=== PATIENT | male | born 1965 | race Caucasian/White ===

== ENCOUNTER → 2017-02-12 | Outpatient (CLI) | payer OTHER ==
--- NOTE | 2017-02-12 12:05 | XR ---
EXAMINATION TYPE: XR foot complete LT DATE OF EXAM: 02/12/2017 COMPARISON: NONE HISTORY: Right foot pain, left heel pain TECHNIQUE: 3 views left foot FINDINGS: No acute fractures are evident. The soft tissues are normal. Small plantar and Achilles ten don calcaneal heel spurs are present. IMPRESSION: 1. Calcaneal heel spurs. 2. No acute osseous abnormality.
== END | disposition home or self-care (01) ==
LOC: RADXRMAIN 11:07
PROVIDERS: ATTEND Physician Assistant
DX: M77.31 Calcaneal spur, right foot (principal)

== ENCOUNTER → 2017-08-30 | Outpatient (CLI) | payer OTHER ==
[2017-08-30 12:17] LABS: ALT 35 U/L (21-72); AST 19 U/L (17-59); Albumin 4.3 g/dL (3.5-5.0); Alkaline Phosphatase 81 U/L (38-126); Anion Gap 12 mmol/L; Blood Urea Nitrogen 16 mg/dL (9-20); Calcium 9.3 mg/dL (8.4-10.2); Carbon Dioxide 27 mmol/L (22-30); Chloride 103 mmol/L (98-107); Cholesterol 241 mg/dL (<200); Glucose 103 mg/dL (74-99); HDL Cholesterol 48 mg/dL (40-60); LDL Cholesterol,Calculated 169 mg/dL (0-99); Potassium 4.7 mmol/L (3.5-5.1); Sodium 142 mmol/L (137-145); Total Bilirubin 0.5 mg/dL (0.2-1.3); Total Protein 7.6 g/dL (6.3-8.2); Triglycerides 118 mg/dL (<150)
== END | disposition home or self-care (01) ==
LOC: LABWHC1 11:42
PROVIDERS: ATTEND Internal Medicine Interventional Cardiology
DX: E78.2 Mixed hyperlipidemia (principal)
CPT/HCPCS: 36415; 80053; 80061

== ENCOUNTER → 2018-02-22 | Outpatient (CLI) | payer OTHER ==
[2018-02-22 13:38] LABS: ALT 41 U/L (21-72); AST 32 U/L (17-59); Anion Gap 9 mmol/L; Blood Urea Nitrogen 14 mg/dL (9-20); Calcium 9.5 mg/dL (8.4-10.2); Carbon Dioxide 25 mmol/L (22-30); Chloride 105 mmol/L (98-107); Cholesterol 210 mg/dL (<200); Glucose 97 mg/dL (74-99); HDL Cholesterol 47 mg/dL (40-60); LDL Cholesterol,Calculated 143 mg/dL (0-99); Potassium 4.5 mmol/L (3.5-5.1); Sodium 139 mmol/L (137-145); Triglycerides 101 mg/dL (<150)
[2018-02-22 13:44] LABS: Basophils % (A) 1 %; Eosinophils # (A) 0.1 k/uL (0-0.7); Eosinophils % (A) 1 %; HCT 49.4 % (39.0-53.0); HGB 16.6 gm/dL (13.0-17.5); Lymphocytes # (A) 2.3 k/uL (1.0-4.8); Lymphocytes % (A) 26 %; MCH 33.1 pg (25.0-35.0); MCHC 33.5 g/dL (31.0-37.0); MCV 98.7 fL (80.0-100.0); Mean Platelet Volume 6.7; Monocytes # (A) 0.5 k/uL (0-1.0); Monocytes % (A) 5 %; Neutrophils # (A) 5.9 k/uL (1.3-7.7); Neutrophils % (A) 65 %; Platelet Count 255 k/uL (150-450); RBC 5.01 m/uL (4.30-5.90); RDW 12.7 % (11.5-15.5)
[2018-02-22 13:54] LABS: T4, Free (Free Thyroxine) 0.95 ng/dL (0.78-2.19)
[2018-02-22 14:08] LABS: Prostate Specific Antigen 1.02 ng/mL (0.00-4.00)
== END | disposition home or self-care (01) ==
LOC: LABWHC1 12:54
PROVIDERS: ATTEND Internal Medicine Interventional Cardiology
DX: I10 Essential (primary) hypertension (principal); E78.2 Mixed hyperlipidemia; Z12.5 Encounter for screening for malignant neoplasm of prostate
CPT/HCPCS: 36415; 80048; 80061; 84153; 84439; 84443; 84450; 84460; 85025

== ENCOUNTER → 2018-10-21 | Outpatient (CLI) | payer OTHER ==
[2018-10-21 18:59] LABS: Albumin 4.7 g/dL (3.80-4.90); Albumin/Globulin Ratio 2.04 (1.60-3.17); Anion Gap 9.2 mmol/L (4.00-12.00); Calcium 9.4 mg/dL (8.7-10.3); Carbon Dioxide 24.8 mmol/L (21.6-31.8); Globulin 2.3 g/dL (1.6-3.3); LDL Cholesterol,Calculated 145.6 mg/dL (0.0-131.0); Potassium 4.1 mmol/L (3.5-5.5); Total Bilirubin 0.7 mg/dL (0.3-1.2); VLDL Calculation 23.4 mg/dL (5.00-40.00)
== END ==
LOC: LABWHC1 12:55
PROVIDERS: ATTEND Internal Medicine Interventional Cardiology
DX: E78.2 Mixed hyperlipidemia (principal)
CPT/HCPCS: 36415; 80053; 80061

== ENCOUNTER → 2019-03-10 | Outpatient (CLI) | payer OTHER ==
[2019-03-10 18:26] LABS: African American GFR (CKD) 99.8 (60.0-200.0); Albumin 4.6 g/dL (3.80-4.90); Albumin/Globulin Ratio 2.09 (1.60-3.17); Anion Gap 7.7 mmol/L (4.00-12.00); Calcium 9.2 mg/dL (8.7-10.3); Carbon Dioxide 27.3 mmol/L (21.6-31.8); Chol/HDL Ratio 4.44; Globulin 2.2 g/dL (1.6-3.3); LDL Cholesterol,Calculated 122.8 mg/dL (0.0-131.0); Potassium 4.1 mmol/L (3.5-5.5); Total Bilirubin 0.5 mg/dL (0.2-1.2); Total Protein 6.8 g/dL (6.2-8.2); VLDL Calculation 18.2 mg/dL (5.00-40.00)
== END | disposition home or self-care (01) ==
LOC: LABWHC1 12:42
PROVIDERS: ATTEND Internal Medicine Interventional Cardiology
DX: E78.2 Mixed hyperlipidemia (principal)
CPT/HCPCS: 36415; 80053; 80061

== ENCOUNTER → 2019-04-28 | Outpatient (CLI) | payer OTHER ==
[2019-04-28 17:08] LABS: Chol/HDL Ratio 4.07; LDL Cholesterol,Calculated 110.4 mg/dL (0.0-131.0); VLDL Calculation 18.6 mg/dL (5.00-40.00)
== END | disposition home or self-care (01) ==
LOC: LABWHC1 11:39
PROVIDERS: ATTEND Nurse Practitioner Adult Health
DX: E78.2 Mixed hyperlipidemia (principal)
CPT/HCPCS: 36415; 80061; 82550; 84450; 84460

== ENCOUNTER → 2020-01-30 | Outpatient (CLI) | payer OTHER ==
[2020-01-30 19:41] LABS: Chol/HDL Ratio 5.8; LDL Cholesterol,Calculated 168.6 mg/dL (0.0-131.0); VLDL Calculation 28.4 mg/dL (5.00-40.00)
== END | disposition home or self-care (01) ==
LOC: LABWHC1 12:27
PROVIDERS: ATTEND Nurse Practitioner Adult Health
DX: E78.2 Mixed hyperlipidemia (principal)
CPT/HCPCS: 36415; 80061

== ENCOUNTER 2020-06-12 10:25 | Day surgery (SDC) | payer OTHER ==
[2020-05-21 15:28] VITALS: BMI 41.8
--- NOTE | 2020-06-12 09:47 | P.GSHP ---
History of Present Illness H&P Date: 06/12/20 CHIEF COMPLAINT: Colon screen HISTORY OF PRESENT ILLNESS: The patient is a 54-year-old male who presents for colon screen. Lower endoscopy was offered for further evaluation and management. PAST MEDICAL HISTORY: Please see list. PAST SURGICAL HISTORY: Please see list. MEDICATIONS: Please see list. ALLERGIES: Please see list. SOCIAL HISTORY: No illicit drug use FAMILY HISTORY: No reports of Crohn disease or ulcerative colitis. REVIEW OF ORGAN SYSTEMS: CONSTITUTIONAL: No reports of fevers or chills. PHYSICAL EXAM: VITAL SIGNS: Stable GENERAL: Well-developed pleasant in no acute distress. HEENT: No scleral icterus. Extraocular movements grossly intact. Moist buccal mucosa. NECK: Supple without lymphadenopathy. CHEST: Unlabored respirations. Equal bilateral excursions. CARDIOVASCULAR: Regular rate and rhythm. Distal 2+ pulses. ABDOMEN: Soft, nontender, nondistended. MUSCULOSKELETAL: No clubbing, cyanosis, or edema. ASSESSMENT: 1. Colon screen. PLAN: 1. Recommend proceeding with a lower endoscopy Past Medical History Past Medical History: Coronary Artery Disease (CAD), GERD/Reflux, Hyperlipidemia, Hypertension, Sleep Apnea/CPAP/BIPAP Additional Past Medical History / Comment(s): bronchitis yearly until young adulthood, no cpap used, History of Any Multi-Drug Resistant Organisms: None Reported Past Surgical History: Heart Catheterization With Stent Additional Past Surgical History / Comment(s): two cardiac stents Past Anesthesia/Blood Transfusion Reactions: No Reported Reaction Additional Past Anesthesia/Blood Transfusion Reaction / Comment(s): Pt has never had general anesthesia. He has never recieved blood. Date of Last Stent Placement:: 2014 Smoking Status: Current every day smoker - Past Family History Father Additional Family Medical History / Comment(s): Father at age 42 yrs of unknown causes. He was coughing blood. Pt believes he may have had cancer. Mother Family Medical History: Cancer Additional Family Medical History / Comment(s): Mother of metastatic breast cancer at age 54yrs. Medications and Allergies Home Medications Medication Instructions Recorded Confirmed Type Aspirin [Adult Low Dose Aspirin EC] 81 mg PO DAILY 05/21/20 06/10/20 History Atorvastatin [Lipitor] 10 mg PO SUTH 05/21/20 05/21/20 History carvediloL [Coreg] 12.5 mg PO BID 05/21/20 05/21/20 History amLODIPine [Norvasc] 5 mg PO HS 06/10/20 06/10/20 History Allergies Allergy/AdvReac Type Severity Reaction Status Date / Time Iodine and Iodide Containing Allergy Severe Anaphylaxis Verified 05/21/20 15:20 Produc shellfish derived [Shellfish] Allergy Anaphylaxis Verified 05/21/20 15:20 codiene AdvReac Nausea Uncoded 05/21/20 15:20
[~2020-06-12 10:25] MED LIST: LACTATED RINGERS 1,000 ML IV SCH; LIDOCAINE 1% (10MG/ML) FOR IV START INTRADERMA PRN
[2020-06-12 11:09] VITALS: TEMP 97.2
[2020-06-12] MEDS ORDERED: PROPOFOL 10 MG/ML 20 ML VIAL IV ONE (11:51)
--- NOTE | 2020-06-12 12:24 | P.PCN ---
Date of Procedure: 06/12/20 Description of Procedure: PREOPERATIVE DIAGNOSIS: Family history colon cancer Colonoscopy screening, initial POSTOPERATIVE DIAGNOSIS: Family history colon cancer Colonoscopy screening, initial Tubular adenoma ascending colon Tubular adenoma transverse colon Tubular adenoma sigmoid colon Severe obstructive sleep apnea, untreated Sigmoid diverticulosis OPERATION: Colonoscopy to the ileocecal valve, cecum Colonoscopy with hot snare polypectomy SURGEON: Ayala Rosario MD. ANESTHESIA: MAC. INDICATIONS: The patient is an 54-year-old male who presents family history of malignant colon cancer. He presents for his first colonoscopy screening. Benefits and risks were described and informed consent was obtained. DESCRIPTION OF PROCEDURE: The patient had undergone Suprep. He had been brought into the operating room and laid in the left lateral decubitus position. After adequate intravenous sed ation, the rectum was examined with 2% lidocaine jelly. The prostate was enlarged. No external hemorrhoids were encountered. The rectal tone was within normal limits. No lesions were palpated in the rectal vault. An Olympus colonoscope was advanced to the cecum and ileocecal valve. The prep was good. Sigmoid diverticulosis was encountered. Multiple colonic polyps were found and snare polypectomy. During the procedure, patient acutely desatted unable to tolerate sedation. Additional polyps unable to obtain from transverse colon, sigmoid colon due to intolerance of sedation. No evidence of focal colitis was found. Retroflexion of the scope demonstrated grade 2 internal hemorrhoids without active bleeding or inflammation. The colon was desufflated. The patient had tolerated the procedure well. Withdrawal time was over 6 minutes. FINDINGS: Aronchick preparation quality scale 2 (1-5) Internal hemorrhoids, grade 2 with recent inflammation and bleeding No external hemorrhoids. No arteriovenous malformations. Sigmoid diverticulosis Multiple polyps identified along the transverse colon 3, sigmoid colon 1, unobtainable to obtain as patient is unable to tolerate sedation Removal of 1 polyp: - Snare polypectomy ascending colon, 5 mm tubulovillous adenoma polyp. No focal colitis. RECOMMENDATIONS: 1. He has multiple high-risk colon polyps, repeat colonoscopy 1 year, 2021 2. Per discussion with anesthesia, general endotracheal intubation for colonoscopy with polypectomy 3. Recommend urgent assessment for severe untreated obstructive sleep apnea Plan - Discharge Summary Discharge Rx Participant: No New Discharge Prescriptions: Continue Atorvastatin [Lipitor] 10 mg PO SUTH carvediloL [Coreg*] 12.5 mg PO BID Aspirin [Adult Low Dose Aspirin EC] 81 mg PO DAILY amLODIPine [Norvasc] 5 mg PO HS Discharge Medication List Aspirin [Adult Low Dose Aspirin EC] 81 mg PO DAILY 05/21/20 [History] Atorvastatin [Lipitor] 10 mg PO SUTH 05/21/20 [History] carvediloL [Coreg*] 12.5 mg PO BID 05/21/20 [History] amLODIPine [Norvasc] 5 mg PO HS 06/10/20 [History] Follow up Appointment(s)/Referral(s): Ayala Rosario MD [STAFF PHYSICIAN] - 06/18/20 Patient Instructions/Handouts: Colorectal Polyps (DC), Sleep Apnea (DC) Activity/Diet/Wound Care/Special Instructions: Repeat colonoscopy 1 year, 2021 under general anesthetic. Will need immediate referral for sleep apnea treatment Discharge Disposition: HOME SELF-CARE
[2020-06-12 12:42] VITALS: BP 126/71; PULSE 70; RESP 16
== END 2020-06-12 13:04 | disposition home or self-care (01) ==
LOC: ORWHC2ENDO 10:25
PROVIDERS: ATTEND Surgery Plastic and Reconstructive Surgery
DX: Z12.11 Encounter for screening for malignant neoplasm of colon (principal); D12.2 Benign neoplasm of ascending colon; D12.3 Benign neoplasm of transverse colon; D12.5 Benign neoplasm of sigmoid colon; K57.30 Diverticulosis of large intestine without perforation or abscess without bleeding; K64.1 Second degree hemorrhoids; G47.33 Obstructive sleep apnea (adult) (pediatric); I25.10 Atherosclerotic heart disease of native coronary artery without angina pectoris; I10 Essential (primary) hypertension; E78.5 Hyperlipidemia, unspecified; Z95.5 Presence of coronary angioplasty implant and graft; K21.9 Gastro-esophageal reflux disease without esophagitis; Z80.0 Family history of malignant neoplasm of digestive organs; Z79.82 Long term (current) use of aspirin; Z79.02 Long term (current) use of antithrombotics/antiplatelets; Z79.899 Other long term (current) drug therapy; Z91.041 Radiographic dye allergy status; Z88.5 Allergy status to narcotic agent; Z88.8 Allergy status to other drugs, medicaments and biological substances; Z91.013 Allergy to seafood; Z80.3 Family history of malignant neoplasm of breast
CPT/HCPCS: 88305; 45385; J2704

== ENCOUNTER → 2020-06-18 | Outpatient (CLI) | payer OTHER ==
[2020-06-18 21:27] LABS: Chol/HDL Ratio 4.77
== END | disposition home or self-care (01) ==
LOC: LABWHC1 11:36
PROVIDERS: ATTEND Nurse Practitioner Adult Health
DX: E78.2 Mixed hyperlipidemia (principal)
CPT/HCPCS: 36415; 80061; 84450; 84460

== ENCOUNTER → 2020-11-06 | Outpatient (CLI) | payer OTHER ==
--- NOTE | 2020-11-06 17:46 | CONS ---
CONSULTATION HISTORY: A 55-year-old gentleman has been evaluated in [facility] for possible obstructive sleep apnea-hypopnea syndrome. EVALUATION: Patient's usual sleep schedule from 11 p.m. to 5 a.m. basically 7 days a week. No problems with falling asleep, although he has TV set in bedroom. He usually sleeps on the side position with extremely loud snoring and witnessed episodes of stopped breathing during sleep by his . He wakes up from sleep up to 5 times with nocturia. No history of hypnagogic hallucinations, sleep paralysis or cataplexy. During the day, patient may take one nap at 3 p.m. [place] Sleepiness Scale is 4. PAST MEDICAL HISTORY: Positive for hypertension, coronary artery disease, heart attack, hyperlipidemia. PAST SURGICAL HISTORY: Stent insertions to coronary arteries. MEDICATIONS: Carvedilol 12.5 mg twice a day, amlodipine 10 mg once a day, atorvastatin 10 mg 3 times a week, baby aspirin 81 mg once a day, naproxen 220 mg once a day, turmeric. ALLERGIES: Iodine. SOCIAL HISTORY: Alcohol consumption occasional. History of smoking up to 1-1/2 packs a day for 25 years. REVIEW OF SYSTEMS: Loud snoring, witnessed episodes of stopped breathing, multiple awakenings from sleep. PHYSICAL EXAM: A pleasant gentleman without distress. BP 168/91, HR 62, RR 18, height 5 feet 8-1/2 inches, weight 297.6 pounds, body mass index 44.5, temperature 97.5, oxygen saturation at room air 97%. Oropharynx extremely low position of soft palate, Mallampati 4. Neck is wide, 19-1/2 inches in circumference. Abdomen obese. IMPRESSION: 1. Loud snoring, witnessed episodes of stopped breathing during sleep, extremely low position of soft palate, Mallampati 4, wide neck 19.5 Inches in circumference, obstructive sleep apnea-hypopnea syndrome. 2. Obesity, BMI 44.5. 3. Hypertension. 4. Coronary artery disease, status post NM and stent insertions. 5. Hyperlipidemia. PLAN: 1. Polysomnography for evaluation of patient's breathing during sleep. 2. CPAP/BiPAP titration if sleep study confirms obstructive sleep apnea-hypopnea syndrome. 3. Preferable position during sleep on the side. 4. No driving if patient feels any sleepiness. 5. I will see patient for follow up visit to explain results of testing and following plan. Rony Li MD, PhD, FAASM Diplomat of [place] [employer] [place] [employer] [facility] [facility] [place] MMODMarcelo / LIGIA: [id number] /
== END ==
LOC: SLEEP 13:05
PROVIDERS: ATTEND Internal Medicine
DX: G47.33 Obstructive sleep apnea (adult) (pediatric) (principal); E66.9 Obesity, unspecified; E78.5 Hyperlipidemia, unspecified; I10 Essential (primary) hypertension; I25.10 Atherosclerotic heart disease of native coronary artery without angina pectoris; I25.2 Old myocardial infarction; Z68.41 Body mass index [BMI] 40.0-44.9, adult; Z79.899 Other long term (current) drug therapy; Z95.5 Presence of coronary angioplasty implant and graft; Z79.82 Long term (current) use of aspirin; Z87.891 Personal history of nicotine dependence; Z91.041 Radiographic dye allergy status; Z91.013 Allergy to seafood; Z88.5 Allergy status to narcotic agent
CPT/HCPCS: 99202

== ENCOUNTER → 2020-12-09 | Outpatient (CLI) | payer OTHER ==
[2020-12-09 19:40] LABS: Albumin 4.6 g/dL (3.80-4.90); Albumin/Globulin Ratio 1.7 (1.60-3.17); Anion Gap 7.2 mmol/L (4.00-12.00); BUN/Creat Ratio 15.71 Ratio (12.00-20.00); Calcium 8.9 mg/dL (8.7-10.3); Carbon Dioxide 24.8 mmol/L (21.6-31.8); Chol/HDL Ratio 4.6; Globulin 2.7 g/dL (1.6-3.3); LDL Cholesterol,Calculated 123.2 mg/dL (0.0-131.0); Potassium 4.3 mmol/L (3.5-5.5); Total Bilirubin 0.4 mg/dL (0.3-1.2); Total Protein 7.3 g/dL (6.2-8.2); VLDL Calculation 27.8 mg/dL (5.00-40.00)
== END | disposition home or self-care (01) ==
LOC: LABWHC1 11:54
PROVIDERS: ATTEND Nurse Practitioner Adult Health
DX: E78.2 Mixed hyperlipidemia (principal); I10 Essential (primary) hypertension
CPT/HCPCS: 36415; 80053; 80061

== ENCOUNTER 2021-04-15 18:25 | Inpatient (IN) | payer OTHER ==
--- NOTE | 2021-04-15 19:49 | XR ---
EXAMINATION TYPE: XR chest 2V DATE OF EXAM: 04/15/2021 COMPARISON: NONE HISTORY: Fever TECHNIQUE: 3 views FINDINGS: Heart and mediastinum are normal. Lungs are clear of consolidation. There is coarsening of the interstitial markings. Bony thorax is intact. IMPRESSION: Coarse pulmonary interstitial infiltrates. This could be interstitial pneumonia or pulmon klaudia fibrosis. Normal heart.
[2021-04-15] MEDS ORDERED: DEXAMETHASONE SOD PHOSPHATE 10 MG/ML 1 ML VIAL IM STA (19:57)
[2021-04-15] MEDS ORDERED: ACETAMINOPHEN TAB 325 MG TAB PO STA (19:57)
[2021-04-15] MEDS ORDERED: SODIUM CHLORIDE 0.9% 50 ML IVPB ONE (20:15)
--- NOTE | 2021-04-15 20:23 | ED ---
URI HPI - General Chief Complaint: Upper Respiratory Infection Stated Complaint: off balance, confusion, fever Time Seen by Provider: 04/15/21 19:57 Source: patient, RN notes reviewed Mode of arrival: ambulatory Limitations: no limitations - History of Present Illness Initial Comments: Patient is a 55-year-old male that presents to the emergency department with fever cough upper respiratory tract symptoms. Patient notes that daughter is Covid-positive and has been around them. Patient notes he wanted Covid test. He was otherwise well-appearing in no apparent distress. Denied any chest pain headache nausea vomiting diarrhea constipation fatigue chills. - Related Data Home Medications Medication Instructions Recorded Confirmed Aspirin [Adult Low Dose Aspirin EC] 81 mg PO DAILY 05/21/20 06/12/20 Atorvastatin [Lipitor] 10 mg PO SUTH 05/21/20 06/12/20 carvediloL [Coreg*] 12.5 mg PO BID 05/21/20 06/12/20 amLODIPine [Norvasc] 5 mg PO HS 06/10/20 06/12/20 Allergies Allergy/AdvReac Type Severity Reaction Status Date / Time Iodine and Iodide Containing Allergy Severe Anaphylaxis Verified 06/12/20 10:52 Produc shellfish derived [Shellfish] Allergy Anaphylaxis Verified 06/12/20 10:52 codiene AdvReac Nausea Uncoded 06/12/20 10:52 Review of Systems ROS Statement: Those systems with pertinent positive or pertinent negative responses have been documented in the HPI. ROS Other: All systems not noted in ROS Statement are negative. Past Medical History Past Medical History: Coronary Artery Disease (CAD), GERD/Reflux, Hyperlipidemia, Hypertension, Sleep Apnea/CPAP/BIPAP Additional Past Medical History / Comment(s): bronchitis yearly until young adulthood, no cpap used, History of Any Multi-Drug Resistant Organisms: None Reported Past Surgical History: Heart Catheterization With Stent Additional Past Surgical History / Comment(s): two cardiac stents Past Anesthesia/Blood Transfusion Reactions: No Reported Reaction Additional Past Anesthesia/Blood Transfusion Reaction / Comment(s): Pt has never had general anesthesia. He has never recieved blood. Date of Last Stent Placement:: 2014 Past Psychological History: No Psychological Hx Reported Smoking Status: Current every day smoker Past Alcohol Use History: None Reported Past Drug Use History: None Reported - Past Family History Father Additional Family Medical History / Comment(s): Father at age 42 yrs of unknown causes. He was coughing blood. Pt believes he may have had cancer. Mother Family Medical History: Cancer Additional Family Medical History / Comment(s): Mother of metastatic breast cancer at age 54yrs. General Exam Limitations: no limitations General appearance: alert, in no apparent distress, obese Head exam: Present: atraumatic, normocephalic, normal inspection Eye exam: Present: normal appearance, PERRL, EOMI. Absent: scleral icterus, conjunctival injection, periorbital swelling ENT exam: Present: normal exam, mucous membranes moist Neck exam: Present: normal inspection. Absent: tenderness, meningismus, lymphadenopathy Respiratory exam: Present: normal lung sounds bilaterally. Absent: respiratory distress, wheezes, rales, rhonchi, stridor Cardiovascular Exam: Present: regular rate, normal rhythm, normal heart sounds. Absent: systolic murmur, diastolic murmur, rubs, gallop, clicks Extremities exam: Present: normal inspection, full ROM, normal capillary refill. Absent: tenderness, pedal edema, joint swelling, calf tenderness Neurological exam: Present: alert, oriented X3 Psychiatric exam: Present: normal affect, normal mood Skin exam: Present: warm, dry, intact, normal color. Absent: rash Course Vital Signs 04/15/21 18:59 Temperature 101.8 F H Pulse Rate 108 H Respiratory 24 Rate Blood Pressure 128/83 O2 Sat by Pulse 94 L Oximetry Medical Decision Making - Medical Decision Making 55-year-old male presenting with Covid like symptoms wanting a test. Covid test, chest x-ray ordered. Covid test positive. Patient does meet criteria for monoclonal antibodies. He does wish to undergo infusion. Chest x-ray shows bilateral pulmonary infiltrates. Patient is agreeable discharge home after infusion. Case discussed with Dr. Mcwilliams - Lab Data Lab Results 04/15/21 Range/Units 19:04 Coronavirus (PCR) Detected A (Not Detectd) - Radiology Data Radiology results: report reviewed, image reviewed Chest x-ray: Coarse pulmonary interstitial infiltrates this could be interstitial pneumonia or pulmonary fibrosis. Normal heart. Disposition Clinical Impression: COVID Disposition: HOME SELF-CARE Condition: Stable Instructions (If sedation given, give patient instructions): Coronavirus Disease 2019 (COVID-19) Additional Instructions: Please return to the Emergency Department if symptoms worsen or any other concerns. Follow-up with primary care as soon as possible. Quarantine per CDC guidelines. Take Tylenol Motrin alternating every 3 hours for fever. Increase fluids. Get plenty of rest. Is patient prescribed a controlled substance at d/c from ED?: No Referrals: Leo Calero DO [Primary Care Provider] - 1-2 days Time of Disposition: 20:23
[2021-04-15] MEDS ORDERED: BAMLANIVIMAB (EUA) 700 MG, ETESEVIMAB (EUA) 1,400 MG in SODIUM CHLORIDE 0.9% 50 ML IVPB ONE (20:45)
[2021-04-15] MEDS ORDERED: ALBUTEROL HFA INHALER INHALATION STA (21:33)
[2021-04-15 22:45] LABS: Basophils % (A) 0 %; Eosinophils % (A) 0 %; HCT 47.3 % (39.0-53.0); HGB 16.3 gm/dL (13.0-17.5); Lymphocytes # (A) 0.5 k/uL (1.0-4.8); Lymphocytes % (A) 8 %; MCH 33.4 pg (25.0-35.0); MCHC 34.4 g/dL (31.0-37.0); MCV 96.9 fL (80.0-100.0); Mean Platelet Volume 7.9; Monocytes # (A) 0.2 k/uL (0-1.0); Monocytes % (A) 4 %; Neutrophils # (A) 5.4 k/uL (1.3-7.7); Neutrophils % (A) 87 %; Platelet Count 117 k/uL (150-450); RBC 4.88 m/uL (4.30-5.90); RDW 12.5 % (11.5-15.5); WBC 6.3 k/uL (3.8-10.6)
[2021-04-15 22:54] LABS: Albumin 3.5 g/dL (3.5-5.0); Calcium 7.8 mg/dL (8.4-10.2); Total Bilirubin 0.4 mg/dL (0.2-1.3); Total Protein 6.5 g/dL (6.3-8.2)
[2021-04-15 22:57] LABS: Partial Thromboplastin Time 26.8 sec (22.0-30.0); Prothrombin Time 10.7 sec (9.0-12.0)
[2021-04-15] MEDS ORDERED: NALOXONE 0.4 MG/ML 1 ML VIAL IV PRN (23:01)
[2021-04-15] MEDS ORDERED: ACETAMINOPHEN TAB 325 MG TAB PO PRN (23:01)
--- NOTE | 2021-04-15 23:01 | ED ---
Medical Decision Making - Medical Decision Making On reevaluation in the room patient oxygen saturation was mid 80s on room air. Albuterol inhaler ordered with no change in oxygen saturation. Respiratory therapist put on 5 L oxygen but his oxygen up to 92. Patient is a mouth breather and was instructed that he needs to breathe through his nose. Case discussed with Dr. Waite, patient will be admitted. Patient will forego monoclonal antibiotic at this time. [facility] hospitalist will accept the admit. - Lab Data Result diagrams: 04/15/21 22:34 04/15/21 22:34 Lab Results 04/15/21 04/15/21 04/15/21 Range/Units 19:04 22:34 22:34 WBC 6.3 (3.8-10.6) k/uL RBC 4.88 (4.30-5.90) m/uL Hgb 16.3 (13.0-17.5) gm/dL Hct 47.3 (39.0-53.0) % MCV 96.9 (80.0-100.0) fL MCH 33.4 (25.0-35.0) pg MCHC 34.4 (31.0-37.0) g/dL RDW 12.5 (11.5-15.5) % Plt Count 117 L (150-450) k/uL MPV 7.9 Neutrophils % 87 % Lymphocytes % 8 % Monocytes % 4 % Eosinophils % 0 % Basophils % 0 % Neutrophils # 5.4 (1.3-7.7) k/uL Lymphocytes # 0.5 L (1.0-4.8) k/uL Monocytes # 0.2 (0-1.0) k/uL Eosinophils # 0.0 (0-0.7) k/uL Basophils # 0.0 (0-0.2) k/uL PT 10.7 (9.0-12.0) sec INR 1.0 (<1.2) APTT 26.8 (22.0-30.0) sec Sodium (137-145) mmol/L Potassium (3.5-5.1) mmol/L Chloride (98-107) mmol/L Carbon Dioxide (22-30) mmol/L Anion Gap mmol/L BUN (9-20) mg/dL Creatinine (0.66-1.25) mg/dL Est GFR (CKD-EPI)AfAm (>60 ml/min/1.73 sqM) Est GFR (CKD-EPI)NonAf (>60 ml/min/1.73 sqM) Glucose (74-99) mg/dL Calcium (8.4-10.2) mg/dL Total Bilirubin (0.2-1.3) mg/dL AST (17-59) U/L ALT (4-49) U/L Alkaline Phosphatase (38-126) U/L Total Protein (6.3-8.2) g/dL Albumin (3.5-5.0) g/dL Coronavirus (PCR) Detected A (Not Detectd) 04/15/21 Range/Units 22:34 WBC (3.8-10.6) k/uL RBC (4.30-5.90) m/uL Hgb (13.0-17.5) gm/dL Hct (39.0-53.0) % MCV (80.0-100.0) fL MCH (25.0-35.0) pg MCHC (31.0-37.0) g/dL RDW (11.5-15.5) % Plt Count (150-450) k/uL MPV Neutrophils % % Lymphocytes % % Monocytes % % Eosinophils % % Basophils % % Neutrophils # (1.3-7.7) k/uL Lymphocytes # (1.0-4.8) k/uL Monocytes # (0-1.0) k/uL Eosinophils # (0-0.7) k/uL Basophils # (0-0.2) k/uL PT (9.0-12.0) sec INR (<1.2) APTT (22.0-30.0) sec Sodium 131 L (137-145) mmol/L Potassium 4.0 (3.5-5.1) mmol/L Chloride 103 (98-107) mmol/L Carbon Dioxide 19 L (22-30) mmol/L Anion Gap 9 mmol/L BUN 24 H (9-20) mg/dL Creatinine 1.45 H (0.66-1.25) mg/dL Est GFR (CKD-EPI)AfAm 63 (>60 ml/min/1.73 sqM) Est GFR (CKD-EPI)NonAf 54 (>60 ml/min/1.73 sqM) Glucose 126 H (74-99) mg/dL Calcium 7.8 L (8.4-10.2) mg/dL Total Bilirubin 0.4 (0.2-1.3) mg/dL AST 137 H (17-59) U/L ALT 35 (4-49) U/L Alkaline Phosphatase 69 (38-126) U/L Total Protein 6.5 (6.3-8.2) g/dL Albumin 3.5 (3.5-5.0) g/dL Coronavirus (PCR) (Not Detectd) - Radiology Data Radiology results: report reviewed, image reviewed Chest x-ray: Coarse pulmonary interstitial infiltrates. This could be interstitial pneumonia or pulmonary fibrosis. Normal heart. Disposition Clinical Impression: COVID Disposition: ADMITTED IP TO THIS HOSP Condition: Stable Additional Instructions: . Is patient prescribed a controlled substance at d/c from ED?: No Referrals: Leo Calero DO [Primary Care Provider] - 1-2 days Time of Disposition: 23:00
[2021-04-15] MEDS ORDERED: SODIUM CHLORIDE 0.9% 1,000 ML IV SCH (23:15)
[2021-04-16 01:26] VITALS: TEMP 97.8
[2021-04-16 02:31] VITALS: RESP 24
[2021-04-16] MEDS ORDERED: ASCORBIC ACID 500 MG TAB PO SCH (09:00)
[2021-04-16] MEDS ORDERED: ZINC SULFATE 220 MG CAP PO SCH (09:00)
[2021-04-16] MEDS ORDERED: FAMOTIDINE 20 MG/2 ML VIAL IV SCH (09:00)
[2021-04-16] MEDS ORDERED: ENOXAPARIN 30 MG/0.3 ML SYRINGE SQ SCH (09:00)
[2021-04-16] MEDS ORDERED: DEXAMETHASONE SOD PHOSPHATE 10 MG/ML 1 ML VIAL IVP SCH (09:00)
[2021-04-16] MEDS ORDERED: CHOLECALCIFEROL 25 MCG (1000 IU) TABLET PO SCH (09:00)
--- NOTE | 2021-04-16 09:29 | P.HPIM ---
History of Present Illness This is a pleasant 55 years old male with past medical history of Coronary Artery Disease status post stent, GERD, Hyperlipidemia, Hypertension, Sleep Apnea/CPAP/BIPAP Patient states that he came to the emergency room because he wanted to be tested for Covid because he had a fever a few days ago. However patient denies complaining from dyspnea although he was found to be hypoxic in the emergency room about 80% and is slightly tachypneic. He denies coughing or chest pain he was complaining of from some low back pain and difficulty initiation his urine. He denies diarrhea or vomiting or abdominal pain. No headache or weakness. Walking is fine. No dysuria or urgency. He smokes about 2 packs per day and he was counseled to quit he agrees but he declines nicotine patch. No alcohol or illicit drugs. Patient currently saturating 91% on 6 L of oxygen via nasal cannula, he is afebrile. Labs are unremarkable including unremarkable CBC except for mild lymphopenia and 0.5, INR. BMP shows sodium of 131, creatinine elevated 1.45, compared Perative baseline of 0.7-1.0 Coronavirus detected. liver Enzymes are significantly elevated. Bilirubin is 0.4. Chest x-ray: Bilateral interstitial infiltrates Also patient told me he does not want to [facility] and he wants to leave I told patient is medical problems including Covid infection, hypoxia, bilateral pneumonia and acute kidney injury. I explained to him the risk of leaving AGAINST MEDICAL ADVICE including but not limited to the risk of worsening pneumonia, respiratory failure, need for mechanical ventilation, kidney failure, sepsis or septic shock, and/or and he verbalized understanding but he still thinking of leaving AMA. However he agrees to wait until he talks to the char puller. Patient is oriented to time, place, person and to the surrounding and he has insight into his medical illness, is aware of the complications he might develop, He has capacity to make medical decisions based upon my evaluation Review of Systems CONSTITUTIONAL: No fever, no malaise, no fatigue. HEENT: No recent visual problems or hearing problems. Denied any sore throat. CARDIOVASCULAR: No orthopnea, PND, no palpitations, no syncope. PULMONARY: No chest wall tenderness, no hemoptysis. GASTROINTESTINAL: No diarrhea, no nausea, no vomiting, no abdominal pain. Normoactive bowel sounds. NEUROLOGICAL: No headaches, no weakness, no numbness. HEMATOLOGICAL: Denies any bleeding or petechiae. GENITOURINARY: Denies any burning micturition, frequency, or urgency. MUSCULOSKELETAL/RHEUMATOLOGICAL: Denies any joint pain, swelling, or any muscle pain. ENDOCRINE: Denies any polyuria or polydipsia. Past Medical History Past Medical History: Coronary Artery Disease (CAD), GERD/Reflux, Hyperlipidemia, Hypertension, Sleep Apnea/CPAP/BIPAP Additional Past Medical History / Comment(s): bronchitis yearly until young adulthood, no cpap used, History of Any Multi-Drug Resistant Organisms: None Reported Past Surgical History: Heart Catheterization With Stent Additional Past Surgical History / Comment(s): two cardiac stents Past Anesthesia/Blood Transfusion Reactions: No Reported Reaction Additional Past Anesthesia/Blood Transfusion Reaction / Comment(s): Pt has never had general anesthesia. He has never recieved blood. Date of Last Stent Placement:: 2014 Past Psychological History: No Psychological Hx Reported Smoking Status: Current every day smoker Past Alcohol Use History: None Reported Past Drug Use History: None Reported - Past Family History Father Additional Family Medical History / Comment(s): Father at age 42 yrs of unknown causes. He was coughing blood. Pt believes he may have had cancer. Mother Family Medical History: Cancer Additional Family Medical History / Comment(s): Mother of metastatic breast cancer at age 54yrs. Medications and Allergies Home Medications Medication Instructions Recorded Confirmed Type Aspirin [Adult Low Dose Aspirin EC] 81 mg PO HS 05/21/20 04/15/21 History Atorvastatin [Lipitor] 10 mg PO HS 05/21/20 04/15/21 History Ibuprofen [Advil] 200 mg PO HS 04/15/21 04/15/21 History Metoprolol Succinate (ER) [Toprol 100 mg PO HS 04/15/21 04/15/21 History Xl] Allergies Allergy/AdvReac Type Severity Reaction Status Date / Time Iodine and Iodide Containing Allergy Severe Anaphylaxis Verified 04/15/21 21:44 Produc shellfish derived [Shellfish] Allergy Anaphylaxis Verified 04/15/21 21:44 codeine AdvReac Nausea Verified 04/15/21 21:44 Physical Exam Vitals: Vital Signs Temp Pulse Resp BP Pulse Ox 04/16/21 05:01 91 L 04/16/21 05:00 80 L 04/16/21 03:27 95 04/16/21 02:30 75 24 96 04/16/21 01:24 97.8 F 74 16 98/78 94 L 04/16/21 00:00 99.1 F 77 22 120/59 95 04/15/21 22:35 89 22 118/66 89 L 04/15/21 21:27 96 22 137/85 88 L 04/15/21 18:59 101.8 F H 108 H 24 128/83 94 L Intake and Output 04/15/21 04/16/21 04/16/21 22:59 06:59 14:59 Other: Weight 134.717 kg -GENERAL: The patient is alert and oriented x3, not in any acute distress. Obese HEENT: Pupils are round and equally reacting to light. EOMI. No scleral icterus. No conjunctival pallor. Normocephalic, atraumatic. No pharyngeal erythema. No thyromegaly. CARDIOVASCULAR: S1 and S2 present. No murmurs, rubs, or gallops. -PULMONARY: Chest is clear to auscultation, no wheezing or crackles. Bilateral bilateral crepitation ABDOMEN: Soft, nontender, nondistended, normoactive bowel sounds. No palpable organomegaly. MUSCULOSKELETAL: No joint swelling or deformity. EXTREMITIES: No cyanosis, clubbing, or pedal edema. NEUROLOGICAL: Gross neurological examination did not reveal any focal deficits. SKIN: No rashes. No petechiae Results CBC & Chem 7: 04/15/21 22:34 04/15/21 22:34 Labs: Abnormal Lab Results - Last 24 Hours (Table) 04/15/21 04/15/21 04/15/21 Range/Units 19:04 22:34 22:34 Plt Count 117 L (150-450) k/uL Lymphocytes # 0.5 L (1.0-4.8) k/uL Sodium 131 L (137-145) mmol/L Carbon Dioxide 19 L (22-30) mmol/L BUN 24 H (9-20) mg/dL Creatinine 1.45 H (0.66-1.25) mg/dL Glucose 126 H (74-99) mg/dL Calcium 7.8 L (8.4-10.2) mg/dL AST 137 H (17-59) U/L Coronavirus (PCR) Detected A (Not Detectd) Assessment and Plan Assessment: Bilateral Covid pneumonia Acute hypoxic respiratory failure Increased inflammatory markers Acute kidney injury Hyponatremia, most likely hypovolemic Noncompliance nicotine dependence Obesity with BMI of 42.6 Hyperlipidemia Hypertension History of GERD History of coronary artery disease status post stent History of sleep apnea Plan: This is a pleasant 55 years old male who presents with covid pneumonia Continue with dexamethasone Continue with vitamin C, vitamin D and zinc Pulmonary consult send urine analysis. Check bladder scan Continue with normal saline follow up creatinine level Patient wants to leave [facility], but he agrees to stay still his his char puller, all risks are explained to him and he verbalized understanding. He has capacity to make medical decisions based upon my evaluation Labs and medication were reviewed.. Continue same treatment. Continue with symptomatic treatment. Resume home medication. Monitor lytes and vitals. DVT and GI prophylaxis. Further recommendations depends on the clinical course of the patient DVT prophylaxis: Subcutaneous heparin GI Prophylaxis: Pepcid Prognosis is guarded
[2021-04-16 11:09] VITALS: BP 139/82; PULSE 76
== END 2021-04-16 11:39 | disposition left against medical advice (07) | DRG 177 ==
LOC: EC 18:25 → 4SSUR 23:01
PROVIDERS: ADMIT Hospitalist; ATTEND Hospitalist
DX: U07.1 COVID-19 (principal); J96.01 Acute respiratory failure with hypoxia; J12.82 Pneumonia due to coronavirus disease 2019; N17.9 Acute kidney failure, unspecified; E87.1 Hypo-osmolality and hyponatremia; Z68.41 Body mass index [BMI] 40.0-44.9, adult; J40 Bronchitis, not specified as acute or chronic; K21.9 Gastro-esophageal reflux disease without esophagitis; I25.10 Atherosclerotic heart disease of native coronary artery without angina pectoris; I10 Essential (primary) hypertension; F17.210 Nicotine dependence, cigarettes, uncomplicated; E86.1 Hypovolemia; D72.810 Lymphocytopenia; E78.5 Hyperlipidemia, unspecified; E66.9 Obesity, unspecified; Z53.29 Procedure and treatment not carried out because of patient's decision for other reasons; Z79.82 Long term (current) use of aspirin; Z79.899 Other long term (current) drug therapy; Z91.19 Patient's noncompliance with other medical treatment and regimen; Z95.5 Presence of coronary angioplasty implant and graft; Z88.5 Allergy status to narcotic agent; Z91.013 Allergy to seafood
CPT/HCPCS: 36415; 71046; 80053; 85025; 85610; 85730; 87635; 94640; 94760; 96372; 99285